=== PATIENT | male | born 1980 | race Caucasian/White ===

== ENCOUNTER 2016-10-28 06:45 | Inpatient (IN) | payer MEDICAID ==
[~2016-10-28] VITALS: Ht 180.3 cm; Wt 79.4 kg
[2016-10-28 06:54] VITALS: BP 150/89
--- NOTE | 2016-10-28 06:59 | NUR ---
AMBULATED TO ER BED 5
--- NOTE | 2016-10-28 07:05 | NUR ---
PATIENT PRESENTS TO ED WITH RUQ AND RLQ ABD PAIN SINCE YESTERDAY . PT STATES HE IS VOMITING WELL SINCE YESTERDAY. PT DENIES MED HX . DENIES DIARRHEA; SKIN IS PINK/WARM/DRY; AAOX4 WITH EVEN AND STEADY GAIT; LUNGS CLEAR BL; HR EVEN AND REGULAR; PT DENIES ANY FEVER, CP, SOB, OR COUGH AT THIS TIME; PATIENT STATES PAIN OF 0/10 AT THIS TIME; VSS; PATIENT POSITIONED FOR COMFORT; HOB ELEVATED; BEDRAILS UP X2; BED DOWN. ER MD MADE AWARE OF PT STATUS.
--- NOTE | 2016-10-28 07:22 | NUR ---
ER MD DR ALLRED EVALUATING PT AT BEDSIDE.
[2016-10-28] MEDS ORDERED: KETOROLAC 30 MG/ML VIAL IVP ONE ×2 (07:25→22:05)
--- NOTE | 2016-10-28 07:35 | NUR ---
LAB AT BEDSIDE
--- NOTE | 2016-10-28 07:37 | NUR ---
Marlys victor in ED - 10/28/16 at 0744 by MED1 PA TAKEN TO X RAY VIA W/C ACCOMPANIED BY MANAGER BEAUTY.
--- NOTE | 2016-10-28 07:37 | NUR ---
PT TAKEN TO CT VIA W/C ACCOMPANIED BY CLINICAL PROJECT LEADER
--- NOTE | 2016-10-28 07:43 | NUR ---
PT RETUENED FROM CT VIA W/C ACCOMPANIED BY WINDING LATHE OPERATOR
[2016-10-28] MEDS ORDERED: PIPERACILLIN/TAZOBACTAM 3.375 GM in DEXTROSE 5% 50 ML IV ONE (08:20)
--- NOTE | 2016-10-28 08:22 | NUR ---
FAMILY AT BEDSIDE.
[2016-10-28] MEDS ORDERED: PIPERACILLIN/TAZOBACTAM 3.375 GM VIAL IV ONE (08:27)
[2016-10-28] MEDS ORDERED: MORPHINE SULFATE 2 MG/ML SYR IVP PRN (08:40)
[2016-10-28] MEDS ORDERED: HYDROcodone/APAP 5/325 MG 1 TAB TAB PO PRN (08:40)
[2016-10-28] MEDS ORDERED: DOCUSATE SODIUM 100 MG GELCAP PO PRN (08:40)
[2016-10-28] MEDS ORDERED: ONDANSETRON 4 MG/2 ML VIAL IVP PRN ×2 (08:40→22:10)
[2016-10-28] MEDS ORDERED: ACETAMINOPHEN 325 MG TAB PO PRN (08:40)
--- NOTE | 2016-10-28 08:51 | NUR ---
GAVE REPORT TO MADISON CESPEDES
[2016-10-28] MEDS ORDERED: PANTOPRAZOLE 40 MG TABEC PO SCH (08:54)
--- NOTE | 2016-10-28 09:22 | NUR ---
Patient will be admitted to care of DR GARLAND. Admited to [facility]. Will go to [id number]. Belongings list completed. Report to MADISON CESPEDES.
--- NOTE | 2016-10-28 09:25 | NUR ---
PT ARRIVED ON FLOOR WITH 2 ER NURSES BY HIS SIDE. HIS IS ALSO BY HIS SIDE. PT IS IN STABLE CONDITION. NO COMPLAINTS OF PAIN. PT IS ALERT AND ORIENTED. IV ON L HAND 22G. SKIN IS INTACT. LAST BM WAS 10/28. NO OTHER MED HX PER PT AND . WILL WAIT ON ORDERS. GOT HIM SITUATED. V/S WITHIN NORMAL RANGE. ORIENTED HIM TO THE CALL LIGHT, BATHROOM. UPDATED HIS BOARD. WANTED TO KNOW WHEN THE SURGEON WAS GOING TO COME BY. I TOLD THEM I WILL FIND OUT FOR THEM. WILL CONTINUE TO MONITOR PT.
[2016-10-28 10:30] VITALS: BP 126/74
[2016-10-28] MEDS: SACCHAROMYCES 250 MG CAP PO SCH ×2 (10:36→21:00)
[2016-10-28] MEDS: NACL 0.9% 1,000 ML IV SCH ×2 (10:37→18:09)
--- NOTE | 2016-10-28 11:05 | NUR ---
ULTRASOUND HERE TO DO ABD US.
[2016-10-28] MEDS: PIPER/TAZO 3.375GM/D5W PREMIX 50 ML IV SCH ×2 (11:53→18:00)
[2016-10-28] MEDS ORDERED: PIPERACILLIN/TAZOBACTAM 3.375 GM in DEXTROSE 5% 50 ML IV SCH (12:00)
--- NOTE | 2016-10-28 13:00 | NUR ---
NEEDED TO GO TO THE BATHROOM. I D/C'D THE IV AND RECONNECTED HIM.
--- NOTE | 2016-10-28 14:04 | NUR ---
PT SLEEPING. NO SIGNS OF DISTRESS. WILL CONTINUE TO MONITOR.
[2016-10-28 16:00] VITALS: BP 121/72
--- NOTE | 2016-10-28 16:00 | NUR ---
PT IS SLEEPING. IS BACK AT BEDSIDE. NOTED NO DISTRESS. WILL CONTINUE TO MONITOR PT.
--- NOTE | 2016-10-28 17:30 | NUR ---
PT RESTING COMFORTABLE IN BED. NO COMPLAINTS AT THIS TIME. WILL CONTINUE TO MONITOR PT.
--- NOTE | 2016-10-28 19:00 | NUR ---
DR. MENDEZ CALLED. STATED THAT HE WILL BE COMING TO SEE PT AND IS PLANNING TO DO THE SURGERY TONIGHT. HE WANTED ME TO GET PT'S CONSENT FOR THE PROCEDURE. WILL ENDORSE TO THE GRAPPLE SKIDDER OPERATOR NURSE. PUT IN THE TELEPHONE ORDERS IN THE COMPUTER. NOTIFIED PT THAT THE WILL BE COMING TONIGHT AND THE PROCEDURE TONIGHT.
--- NOTE | 2016-10-28 19:10 | NUR ---
ENDORSED PT TO THE PNEUMATIC TOOL OPERATOR NURSE AT BEDSIDE FOR CONTINUITY OF CARE. PT IS IN STABLE CONDITION WITH AT BEDSIDE.
--- NOTE | 2016-10-28 19:30 | NUR ---
ASSUMED CARE OF PATIENT, AWAKE, ALERT AND ORIENTED. FOR SURGERY THIS EVENING. FAMILY AT BEDSIDE. ALL QUESTIONS ANSWERED. PLAN OF CARE DISCUSSED WITH PATIENT AND FAMILY MEMBER, VERBALIZED UNDERSTANDING WELL. CALL LIGHT WITHIN REACH.
--- NOTE | 2016-10-28 21:30 | NUR ---
DR. MENDEZ AT BEDSIDE, CONSENT SIGNED.
--- NOTE | 2016-10-28 21:57 | NUR ---
TO OR VIA BED.
[2016-10-28] MEDS ORDERED: PHENYLEPHRINE 10 MG/ML VIAL IM ONE (22:05)
[2016-10-28] MEDS ORDERED: SUCCINYLCHOLINE CHLORIDE 200 MG/10 ML VIAL IV ONE (22:05)
[2016-10-28] MEDS ORDERED: ONDANSETRON 4 MG/2 ML VIAL IVP ONE (22:05)
[2016-10-28] MEDS ORDERED: GLYCOPYRROLATE 0.2 MG/ML VIAL IV ONE (22:05)
[2016-10-28] MEDS ORDERED: ROCURONIUM 50 MG/5 ML VIAL IV ONE (22:05)
[2016-10-28] MEDS ORDERED: PROPOFOL 200 MG/20 ML VIAL IV ONE (22:05)
[2016-10-28] MEDS ORDERED: DESFLURANE 240 ML BTL INH ONE (22:05)
[2016-10-28] MEDS ORDERED: DEXAMETHASONE 4 MG/ML VIAL IVP ONE (22:05)
[2016-10-28] MEDS ORDERED: BUPIVACAINE-MPF/EPI 0.25% 30 ML VIAL INJ ONE (22:09)
[2016-10-28] MEDS ORDERED: HYDROmorphone 1 MG/ML AMP IVP PRN (22:10)
[2016-10-28] MEDS ORDERED: HYDROmorphone PFS 2 MG/ML SYR ONE (22:14)
[2016-10-28] MEDS ORDERED: fentaNYL 0.05 MG/ML VIAL ONE (22:14)
--- NOTE | 2016-10-28 23:55 | NUR ---
RECEIVED PATIENT FROM PACU VIA BED. NO COMPLAINS. VITAL SIGNS STABLE. AFEBRILE. 3BAND-AID DRY AND INTACT. AT BEDSIDE. SCD BLE NOTED. CALL LIGHT WITHIN REACH. CLEAR LIQUID DIET SERVED TOLERATED WELL.
[2016-10-29] MEDS: NACL 0.9% 1,000 ML IV SCH ×2 (00:04→10:20)
[2016-10-29] MEDS: PIPER/TAZO 3.375GM/D5W PREMIX 50 ML IV SCH ×3 (00:04→11:35)
[2016-10-29 00:16] VITALS: BP 117/68
--- NOTE | 2016-10-29 04:05 | NUR ---
SLEEPING WELL, EASILY AROUSABLE. NO COMPLAINS. VITAL SIGNS STABLE. AFEBRILE. CALL LIGHT WITHIN REACH.
[2016-10-29] MEDS ORDERED: PANTOPRAZOLE 40 MG TABEC PO SCH (06:30)
--- NOTE | 2016-10-29 07:28 | NUR ---
ENDORSED CARE AT BEDSIDE WITH FRANCIA WALLACE, PATIENT IN STABLE CONDITION.
--- NOTE | 2016-10-29 07:35 | NUR ---
RECEIVED PATIENT FROM MADISON CASTANEDA. PT SEEN AT BEDSIDE. PATIENT IS AAOX4, ON ROOM AIR, NO S/S DISTRESS OR SOB AT THIS TIME. LEFT HAND 20G IV RUNNING IVF AT THIS TIME. PT IS S/P LAP APPE. HAS THREE INCISION SITES ON ABD. INCISION SITES ARE CLEAN, DRY AND INTACT. PT REPORTS MINIMAL PAIN IN ABD AND MODERATE PAIN WHEN MOVING AROUND. PAIN IS MINIMAL AT THIS TIME. PT IS AMBULATORY. SAFETY MEASURES CHECKED, CALL LIGHT LEFT AT BEDSIDE. WILL CONTINUE TO MONITOR.
[2016-10-29 08:00] VITALS: BP 116/66
--- NOTE | 2016-10-29 08:47 | NUR ---
PATIENT HAS BEEN SCREENED AND CATEGORIZED MODERATE NUTRITION RISK. PATIENT WILL BE SEEN WITHIN 3-5 DAYS OF ADMISSION. 10/31/16-11/02/[address]
[2016-10-29] MEDS ORDERED: CALCIUM CARBONATE 500 MG TAB PO SCH (09:00)
[2016-10-29] MEDS ORDERED: POLYETHYLENE GLYCOL 17 GM/PKT PO SCH (09:00)
[2016-10-29] MEDS ORDERED: DOCUSATE SODIUM 100 MG GELCAP PO SCH (09:00)
[2016-10-29] MEDS: SACCHAROMYCES 250 MG CAP PO SCH (09:39)
--- NOTE | 2016-10-29 09:39 | NUR ---
ROUTINE MEDICATIONS GIVEN WITH EDUCATION. PT VERBALIZED UNDERSTANDING. NOTIFIED PATIENT THAT MD WANTS HIM TO AMBULATE. PT VERBALIZED UNDERSTANDING. PT TOLERATED WELL. WILL CONTINUE TO MONITOR.
--- NOTE | 2016-10-29 09:49 | NUR ---
INCENTIVE SPIROMETER GIVEN TO PATIENT. EDUCATION GIVEN. PATIENT VERBALIZED UNDERSTANDING.
--- NOTE | 2016-10-29 10:09 | NUR ---
MORPHINE ADMINISTERED FOR ABD PAIN 01/01. WILL CONTINUE TO MONITOR.
--- NOTE | 2016-10-29 10:30 | NUR ---
PER DR LORI MD WANTS PT TO AMBULATE WHILE IN THE HOSPITAL BEFORE DISCHARGE. PT AMBULATED 3 TIMES AROUND THE UNIT WITHOUT DISTRESS. PT REPORTS PAIN IS MINIMAL AT THIS TIME. PT TOLERATED WELL. WILL CONTINUE TO MONITOR.
--- NOTE | 2016-10-29 10:39 | NUR ---
PT REPORTS RELIEF OF ABD PAIN NOW 10/04.
[2016-10-29] MEDS ORDERED: NORCO 5/325 MG1 TAB PO (11:53)
[2016-10-29] MEDS ORDERED: COLACE100 M1 PO (11:53)
--- NOTE | 2016-10-29 12:00 | NUR ---
PT REPORTS FEELING SOME MODERATE PAIN WHEN MOVING; LET PATIENT KNOW IT IS NORMAL TO HAVE SOME PAIN AFTER SURGERY. LET PATIENT KNOW TO CALL RN IF PATIENT IS UNBEARABLE. PT VERBALIZED UNDERSTANDING. ASSISTED WITH LUNCH TRAY.
--- NOTE | 2016-10-29 12:30 | NUR ---
PT REPORTS TOLERATING LUNCH TRAY. NO BM AT THIS TIME. WILL CONTINUE TO MONITOR.
[2016-10-29 12:36] VITALS: BP 116/66
--- NOTE | 2016-10-29 13:00 | NUR ---
WOUND ASSESSMENT DONE ON PATIENT'S INCISION. SEE WOUND DOCUMENTATION.
--- NOTE | 2016-10-29 14:15 | NUR ---
DISCHARGE TEACHING GIVEN, PAPERS SIGNED. ALL QUESTIONS ANSWERED. PT RECEIVED DISCHARGE PACKET FORM WITH PRESCRIPTION AND FOLLOW UP APPOINTMENT. IV DISCONTINUED, PT ID BAND REMOVED; PATIENT DISCHARGED VIA WHEELCHAIR TO [facility] WHERE HE WAS PICKED UP BY HIS FAMILY.
== END 2016-10-29 14:15 | disposition home or self-care (01) | DRG 225 ==
LOC: MED 06:45 → MTU 08:43
PROVIDERS: ADMIT Family Medicine; ATTEND Family Medicine
PROC: 0DTJ4ZZ Resection of Appendix, Percutaneous Endoscopic Approach (ICD-10-PCS; principal; 2016-10-28 21:45)
DX: K35.80 Unspecified acute appendicitis (principal); N17.0 Acute kidney failure with tubular necrosis; R31.9 Hematuria, unspecified; E78.5 Hyperlipidemia, unspecified; N28.81 Hypertrophy of kidney; K76.9 Liver disease, unspecified; K59.00 Constipation, unspecified; E83.51 Hypocalcemia; R80.9 Proteinuria, unspecified; D72.829 Elevated white blood cell count, unspecified

== ENCOUNTER 2022-03-08 15:30 | Emergency (ER) | payer MEDICAID, OTHER ==
[~2022-03-08] VITALS: Ht 180.3 cm; Wt 81.6 kg
[~2022-03-08 15:30] MED LIST: ACET-8386 PO; DOCU-299 PO
--- NOTE | 2022-03-08 15:52 | NUR ---
PT AMBULATED TO BED 01.
[2022-03-08 16:05] VITALS: BP 132/80
--- NOTE | 2022-03-08 16:11 | NUR ---
41 y/o male bib self with c/o not feeling well and being COVID + x 4 days. Patient took two at home tests and tested positive for COVID at home. Patient is unsure if he came in contact with anyone who is sick. Patient also c/o body aches, headache, cough, subjective fever and runny nose. Per patient, his symptoms have been getting worse since Friday. Medical History: Denies NKDA
[2022-03-08] MEDS ORDERED: FLONAS NS (17:00)
[2022-03-08] MEDS ORDERED: IBUP-2213 PO (17:00)
[2022-03-08] MEDS ORDERED: PROM118S5 PO (17:00)
[2022-03-08 17:35] VITALS: BP 119/72
--- NOTE | 2022-03-08 17:35 | NUR ---
Patient discharged with v/s stable. Written and verbal after care instructions given. Patient alert, oriented and verbalized understanding of instructions. Ambulatory with steady gait. All questions addressed prior to discharge. ID band removed. Patient advised to follow up with PMD. Rx of Flonase Nasal, Ibuprofen and Promethazine-DM Syrup given. Opportunity to ask questions provided and answered.
--- NOTE | 2022-03-08 17:36 | NUR ---
The patient's care was reviewed and supervised by Tarah Romeo RN.
== END 2022-03-08 17:35 | disposition home or self-care (01) ==
LOC: MED 15:30
DX: B34.9 Viral infection, unspecified (principal)
CPT/HCPCS: 99283

== ENCOUNTER 2022-08-23 08:35 | Emergency (ER) | payer OTHER ==
[~2022-08-23] VITALS: Ht 170.2 cm; Wt 85.3 kg
[~2022-08-23 08:35] MED LIST changes: -ACET-8386 PO; +ACET-8905 PO; +FLONAS NS; +IBUP-2213 PO; +PROM118S5 PO
[2022-08-23 08:52] VITALS: BP 123/77
[2022-08-23] MEDS ORDERED: KETOROLAC 60 MG/2 ML VIAL IM ONE (09:10)
[2022-08-23] MEDS ORDERED: ACET-8905 PO (10:14)
[2022-08-23] MEDS ORDERED: IBUP-2213 PO (10:14)
[2022-08-23 10:25] VITALS: BP 134/75
--- NOTE | 2022-08-23 10:26 | NUR ---
Patient discharged with v/s stable. Written and verbal after care instructions given and explained. Patient alert, oriented and verbalized understanding of instructions. Ambulatory with steady gait. All questions addressed prior to discharge. ID band removed. Patient advised to follow up with PMD. Rx of IBUPROFEN, NORCO given. Patient educated on indication of medication including possible reaction and side effects. Opportunity to ask questions provided and answered.
== END 2022-08-23 10:21 | disposition home or self-care (01) ==
LOC: MED 08:35
DX: M25.561 Pain in right knee (principal); Z90.49 Acquired absence of other specified parts of digestive tract; Z79.899 Other long term (current) drug therapy
CPT/HCPCS: 96372; 99283; J1885

== ENCOUNTER 2022-10-10 19:56 | Emergency (ER) | payer OTHER ==
[~2022-10-10] VITALS: Ht 180.3 cm; Wt 81.6 kg
[2022-10-10 20:44] VITALS: BP 142/78
--- NOTE | 2022-10-11 00:40 | NUR ---
PT TO 3
[2022-10-11] MEDS ORDERED: ACETAMIN/CODEINE 120/12MG-5ML 5 ML UDC PO ONE (01:05)
[2022-10-11] MEDS ORDERED: NAPR-54 PO (01:24)
[2022-10-11] MEDS ORDERED: ROBAC PO (01:24)
[2022-10-11 01:40] VITALS: BP 138/74
--- NOTE | 2022-10-11 01:40 | NUR ---
Patient discharged with v/s stable. Written and verbal after care instructions given and explained. Patient alert, oriented and verbalized understanding of instructions. Ambulatory with steady gait. All questions addressed prior to discharge. ID band removed. Patient advised to follow up with PMD. Rx of NAPROSYN, CODEINE-GUAIFENESI given. Patient educated on indication of medication including possible reaction and side effects. Opportunity to ask questions provided and answered.
[2022-10-11] MEDS ORDERED: GUAI5LIQ5 PO (14:59)
== END 2022-10-11 01:40 | disposition home or self-care (01) ==
LOC: MED 19:56
DX: J20.9 Acute bronchitis, unspecified (principal)
CPT/HCPCS: 71045; 99283

== ENCOUNTER 2022-11-02 18:27 | Emergency (ER) | payer OTHER ==
[~2022-11-02] VITALS: Ht 180.3 cm; Wt 83.9 kg
[~2022-11-02 18:27] MED LIST changes: +GUAI5LIQ5 PO; +NAPR-54 PO; +ROBAC PO
[2022-11-02 18:35] VITALS: BP 125/84
--- NOTE | 2022-11-02 22:30 | NUR ---
TO BED 9 FROM LOBBY
--- NOTE | 2022-11-02 22:39 | NUR ---
c/o left sided headache, ear ache and jaw pain 05/04 that started last friday. per pt, takes tylenol but ineffective. denies any pmhx, denies allergies.
--- NOTE | 2022-11-02 22:56 | NUR ---
Dr. Woo by bedside
[2022-11-02] MEDS ORDERED: KETOROLAC 30 MG/ML VIAL IM ONE (23:00)
[2022-11-02] MEDS ORDERED: NAPR-54 PO (23:08)
[2022-11-02] MEDS ORDERED: AMOX500C25 PO (23:08)
[2022-11-02 23:26] VITALS: BP 137/84
--- NOTE | 2022-11-02 23:27 | NUR ---
Patient discharged with v/s stable. Written and verbal after care instructions given and explained. New rx for amoxicillin and naproxen. Patient verbalized understanding. Ambulatory with steady gait. All questions addressed prior to discharge. Advised to follow up with PMD.
== END 2022-11-02 23:26 | disposition home or self-care (01) ==
LOC: MED 18:27
DX: K08.89 Other specified disorders of teeth and supporting structures (principal); H92.02 Otalgia, left ear; Z79.899 Other long term (current) drug therapy; Z90.49 Acquired absence of other specified parts of digestive tract
CPT/HCPCS: 96372; 99283; J1885